=== PATIENT | male | born 1965 | race Asian ===

== ENCOUNTER 2018-06-12 17:33 | Inpatient (IN) | payer OTHER ==
[~2018-06-12] VITALS: Ht 167.6 cm; Wt 69.5 kg
[2018-06-12 17:51] VITALS: Ht 167.6 cm; Wt 69.5 kg
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
--- NOTE | 2018-06-12 20:14 | NUR ---
BROTHER AT BEDSIDE
[2018-06-12 20:44] LABS: BASOPHIL % 0.3 % (0-2)
[2018-06-12 20:47] LABS: PLATELET COUNT 477 x10^3mcL (130-400); RED CELL DISTRIBUTION WIDTH 15.4 % (11.5-14.5)
[2018-06-12 20:56] LABS: CALCIUM 8.3 mg/dL (8.5-10.1); CARBON DIOXIDE 24.8 mmol/L (21-32); CHLORIDE SERUM 102 mmol/L (98-107); CREATININE SERUM 0.9 mg/dL (0.7-1.3); GFR1 > 60 mL/min; GLUCOSE SERUM 131 mg/dL (74-106); POTASSIUM SERUM 3.7 mmol/L (3.5-5.1); SODIUM SERUM 138 mmol/L (136-145)
[2018-06-12 21:00] LABS: ALKALINE PHOSPHATASE 260 U/L (46-116); ALT/SGPT 311 U/L (16-63); AST/SGOT 65 U/L (15-37); BILIRUBIN TOTAL 0.5 mg/dL (0.20-1.00); TOTAL PROTEIN, SERUM 7.1 g/dL (6.4-8.2)
[2018-06-12 21:01] LABS: ALBUMIN 3.1 g/dL (3.4-5.0)
--- NOTE | 2018-06-12 21:43 | NUR ---
PT IN POSTION OF COMFORT RESPS E/U WILL CONTINUE TO MONITOR
--- NOTE | 2018-06-12 22:43 | NUR ---
PT IN POSITION OF COMFORT RESPS E/U LIGHTS OFF PER PT REQUEST WITH DOOR OPEN IN VIEW OF NURSE STATION CALL LIGHT WITHIN REACH WILL CONTINUE TO MONITOR
--- NOTE | 2018-06-12 23:50 | NUR ---
PT IN POSITION OF COMFORT RESPS E/U
--- NOTE | 2018-06-13 00:15 | NUR ---
PT ASLEEP BUT AROUSABLE RESPS E/U CALL LIGHT WIHTIN REACH
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
[2018-06-13 01:42] LABS: CHOLESTEROL/HDL RATIO 5.5
[2018-06-13 02:48] LABS: microscopic required? NO
[2018-06-13 03:05] VITALS: BP 123/73
[2018-06-13 03:25] LABS: AMPHETAMINE QUAL UR NONE DETECTED (See below)
[2018-06-13 03:45] LABS: UA SPECIFIC GRAVITY 1.015 (1.005-1.035)
[2018-06-13 03:46] LABS: urine erythrocyte NEGATIVE (NEGATIVE)
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
[2018-06-13 05:29] VITALS: BP 97/65
--- NOTE | 2018-06-13 07:35 | NUR ---
ENDORSED ALL CARE TO DAYSHIFT NURSE, NO ACUTE DISTRESS NOTED. ALL QUESTIONS AND CONCERNS ADDRESSED, CALL LIGHT WITHIN REACH, BED IN LOWEST POSITION.
--- NOTE | 2018-06-13 07:50 | NUR ---
RECIEVED PT COMFORTABLY RESTING IN BED. PT STABLE WITH NO C/O PAIN AND NO RESPIRATORY DISTRESS NOTED. TELE MONITOR #[id number] CONNECTED TO PATIENT. DENIES CHEST PAIN AT THIS TIME. IV INTACT AND PATENT IN RAC. NS RUNNING AT 100ML/HR. SAFETY PRECATIONS IN PLACE. CALL LIGHT WITHIN REACH. WILL ASSESS, DOCUMENT, AND CONTINUE TO MONITOR.
[2018-06-13 07:52] LABS: CARBON DIOXIDE 24.3 mmol/L (21-32); CHLORIDE SERUM 104 mmol/L (98-107); CREATININE SERUM 0.8 mg/dL (0.7-1.3); GFR1 > 60 mL/min; GLUCOSE SERUM 118 mg/dL (74-106); POTASSIUM SERUM 3.7 mmol/L (3.5-5.1); SODIUM SERUM 138 mmol/L (136-145)
[2018-06-13 08:04] LABS: BASOPHIL % 0.8 % (0-2)
[2018-06-13 08:09] LABS: PLATELET COUNT 480 x10^3mcL (130-400); RED CELL DISTRIBUTION WIDTH 15.1 % (11.5-14.5)
--- NOTE | 2018-06-13 09:00 | NUR ---
PT STABLE WITH NO C/O PAIN OR DISTRESS AT THIS TIME. TOLERATING ALL CARES WELL. WILL CONTINUE TO MONITOR.
[2018-06-13 10:19] VITALS: BP 103/69
--- NOTE | 2018-06-13 11:00 | NUR ---
PT IS RESTING COMFORTABLY IN BED. NO C/O PAIN OR RESP DISTRESS NOTED AT THIS TIME. TOLERATING ALL CARES. WILL CONTINUE TO MONITOR.
[2018-06-13 12:38] VITALS: BP 106/62
--- NOTE | 2018-06-13 13:00 | NUR ---
PT RESTING COMFORTABLY WITH NO C/O PAIN OR DISTRESS. WILL CONTINUE TO MONITOR
--- NOTE | 2018-06-13 15:00 | NUR ---
PT RESTING COMFORTABLY IN BED. REPORTS NO PAIN. ALL CARES ATTENDED TO. WILL CONTINUE TO MONITOR.
[2018-06-13 17:52] VITALS: BP 133/69
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
--- NOTE | 2018-06-13 19:26 | NUR ---
PT RESTING COMFORTABLY IN BED WITH FAMILY AT BEDSIDE. VS WNL. NO PAIN AND NO DISTRESS NOTED. TOLERATED ALL CARES WELL. IV INTACT AND PATENT WITH NO REDNESS. SURGEON IN TO SEE PT TO DISCUSS POC. PT VERBALIZES UNDERSTANDING. ALL QUESTIONS AND CONCERNS ADDRESSED. TELLE #23 CONNECTED TO PT. REPORTED AND ENDORSED FURTHER CARE TO LITHOGRAPH OPERATOR.
[2018-06-13 20:57] VITALS: BP 97/58
--- NOTE | 2018-06-13 22:30 | NUR ---
UPON ASSESSMENT OF PT, PT REPORTS PAIN UNDER CONTROL AT THIS TIME, DSG'S REMAIN CDI, IV SITE REMAINS PATENT TO RAC, NS @ 100ML/HR, NO REDNESS, SWELLING OR PAIN NOTED. CALL LIGHT WITH REACH, BED IN LOWEST POSITION, WILL CONTINUE TO MONITOR.
--- NOTE | 2018-06-14 05:00 | NUR ---
PT RESTED IN INTERVALS DURING SHIFT, NO ACUTE CHANGES OCCURRING OVERNIGHT. PT DENIES PAIN DURING SHIFT, IV SITE REMAINS PATENT TO RAC, NS @ 100ML/HR. PT TOLERATING ANTIBIOTICS WELL. PT SEEN SURGEON YESTERDAY AND IS COOPERATIVE WITH CARE AT THIS TIME. ALL COMFORT AND SAFETY MEASURES PROVIDED FOR, CALL LIGHT WITHIN REACH, BED IN LOWEST POSITION, WILL CONTINUE TO MONITOR.
[2018-06-14 05:08] VITALS: BP 104/66
[2018-06-14 06:34] LABS: BASOPHIL % 0.6 % (0-2)
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
[2018-06-14 07:31] LABS: CALCIUM 8.2 mg/dL (8.5-10.1); CARBON DIOXIDE 24.6 mmol/L (21-32); CHLORIDE SERUM 106 mmol/L (98-107); CREATININE SERUM 0.7 mg/dL (0.7-1.3); GFR1 > 60 mL/min; GLUCOSE SERUM 113 mg/dL (74-106); POTASSIUM SERUM 4.8 mmol/L (3.5-5.1); SODIUM SERUM 141 mmol/L (136-145)
[2018-06-14 07:42] LABS: PLATELET COUNT 406 x10^3mcL (130-400); RED CELL DISTRIBUTION WIDTH 14.9 % (11.5-14.5)
--- NOTE | 2018-06-14 07:46 | NUR ---
ENDORSED ALL CARE TO DAYSHIFT NURSE, NO ACUTE DISTRESS NOTED. ALL QUESTIONS AND CONCERNS ADDRESSED. ALL COMFORT AND SAFETY MEASURES PROVIDED FOR, CALL LIGHT WITHIN REACH, BED IN LOWEST POSITION.
--- NOTE | 2018-06-14 08:03 | NUR ---
TYLENOL 65OMG PO GIVEN FOR SHARP R THIGH PAIN 05/26. FLUIDS ENCOURAGED. CALL LIGHT WITHIN REACH.
--- NOTE | 2018-06-14 09:29 | NUR ---
DUE MEDS GIVEN BY STUDENT NURSE WITH PROFESSOR. DENIES PAIN OR DISCOMFORT. FLUIDS ENCOURAGED. PT TAUGHT TO MOVE AND REPOSITION FREQUENTLY WHEN IN BED. PT VERBALIZED UNDERSTANDING.
[2018-06-14 09:35] VITALS: BP 100/65
--- NOTE | 2018-06-14 11:06 | NUR ---
DR. GALEANO TX PT WOUNDS. R UPPER THIGH ANTERIOR WOUND DRESSING REMOVED. ONE RUNNING SUTURE REMOVED. AREA CLEANSED WITH N/S PATTED DRY AND COVERED WITH NON ADHERENT 4X4 AND NONADHERENT ISLAND DRESSING. L UPPER THIGH POSTERIOR WOUND DRESSING REMOVED, 4 SUTURES REMOVED. AREA CLEANSED WITH N/S, PATTED DRY AND COVERED WITH NON ADHERENT 4X4 AND NON ADHERENT ISLAND DRESSING. PICTURES OF BOTH ANTERIOR AND POSTERIOR WOUNDS TAKEN AND IN CHART. PT TOLERATED PROCEDURE WELL.
[2018-06-14 12:45] VITALS: BP 122/72
--- NOTE | 2018-06-14 13:14 | NUR ---
SPOKE TO RAMILA REGARD PATIENT WOUND AND WAS AWARE WOUND VAC ORDER, PER RAMILA WILL EVALUATE PATIENT'S WOUND IF CANDIDATE FOR WOUND VAC.
[2018-06-14 15:45] VITALS: BP 101/63
--- NOTE | 2018-06-14 17:10 | NUR ---
RAMILA WOUND CARE CONSULT CHANGED PT'S DRESSING. DUE MEDS GIVEN. PT DENIES PAIN OR DISCOMFORT. NO DISTRESS NOTED. CALL LIGHT WITHIN REACH.
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
--- NOTE | 2018-06-14 18:17 | NUR ---
PT IS AAOX4. RESP EVEN AND UNLABORED. NO DISTRESS NOTED. DENIES PAIN. IVF RUNNING TO RAC, PATENT. SITE WNL. PT HAS R ANTERIOR AND POSTERIOR THIGH WOUNDS, COVERED WITH CDI DRESSING, NO DRAINAGE NOTED AT THIS TIME. BED IN LOW POSITION. CALL LIGHT WITHIN REACH. WILL ENDORSE ALL CARE TO NOC RN.
[2018-06-14 20:00] VITALS: BP 100/61
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
--- NOTE | 2018-06-14 21:33 | NUR ---
SCHEDULED MEDS ADMINISTERED, PATIENT COMPLAINED OF PAIN TO RT THIGH MEDICATED PRN AND MADE COMFORTABLE IN BED. PATIENT INFORMED ABOUT PURPOSE AND ACTION OF EACH MEDS PRIOR. TOOK PILS WELL.
--- NOTE | 2018-06-14 22:24 | NUR ---
CHECKED EFFECTIVENESS OF PAIN MEDS GIVEN,PATIENT STATED PAIN IS SLOWLY SUBSIDING.
--- NOTE | 2018-06-15 00:52 | NUR ---
ROUNDS MADE PATIENT REMAINED AWAKE, AFTER AMBIEN GIVEN, PATIENT REQUESTING FOR ANOTHER DOSE INFORMED THAT WE WILL INFORM MD. NO OTHER CONCERNS VERBALIZED.
--- NOTE | 2018-06-15 01:02 | NUR ---
SHERLYN GIVEN FOR SLEEP. WILL CHECK EFFECTIVENESS.
--- NOTE | 2018-06-15 03:00 | NUR ---
REMAINED ASLEEP NO DISTRESS. WILL CONTINUE TO MONITOR.
[2018-06-15 06:04] VITALS: BP 94/64
[2018-06-15 06:25] LABS: BASOPHIL % 1.3 % (0-2)
[2018-06-15 06:39] LABS: PLATELET COUNT 480 x10^3mcL (130-400); RED CELL DISTRIBUTION WIDTH 15.1 % (11.5-14.5)
--- NOTE | 2018-06-15 06:47 | NUR ---
PATIENT STATED SLEPT OFF AND ON DURING THE SHIFT, IV SITE NO SIGN OF INFILTRATION. SEEN AMBULATING IN HALLWAY THIS AM WITH STEADY GAIT. PAIN TO RT THIGH WOUND RATED AT 3/10 BEARABLE. WILL ENDORSE CONTINUITY OF CARE TO INCOMING NURSE.
[2018-06-15 06:59] LABS: ALKALINE PHOSPHATASE 162 U/L (46-116); ALT/SGPT 150 U/L (16-63); AST/SGOT 25 U/L (15-37); BILIRUBIN TOTAL 0.3 mg/dL (0.20-1.00); CALCIUM 8.3 mg/dL (8.5-10.1); CARBON DIOXIDE 25.8 mmol/L (21-32); CHLORIDE SERUM 105 mmol/L (98-107); CREATININE SERUM 0.8 mg/dL (0.7-1.3); GFR1 > 60 mL/min; GLUCOSE SERUM 118 mg/dL (74-106); POTASSIUM SERUM 3.7 mmol/L (3.5-5.1); SODIUM SERUM 141 mmol/L (136-145); TOTAL PROTEIN, SERUM 6.3 g/dL (6.4-8.2)
[2018-06-15 07:01] LABS: ALBUMIN 2.7 g/dL (3.4-5.0)
--- NOTE | 2018-06-15 07:36 | NUR ---
BEDSIDE HANDSOFF AND INTRODUCTION PERFORMED WITH INCOMING NURSE TANIA-RN.
--- NOTE | 2018-06-15 07:56 | NUR ---
RECEIVED PATIENT FROM [facility]. PATIENT IN BED RESTING, ON PHONE W NO COMPLAINTS OF PAIN OR DISCOMFORT. R THIGH DRESSING INTACT, CDI. WILL CONTINUE TO MONITOR WOUND & AWAIT FAMILY FOR WOUND CARE NURSE TEACHING. CALL LIGHT IN REACH.
[2018-06-15 08:53] VITALS: BP 105/63
[2018-06-15] MEDS ORDERED: CLINDAMYCIN HC300 MG PO (10:26)
--- NOTE | 2018-06-15 10:30 | NUR ---
WOUND CARE NURSE RAMILA IN TO SEE PATIENT. PATIENT & FAMILY MEMBER TAUGHT TO DO WOUND CARE. ALL QUESTIONS ANSWERED. SPOKE W CUTTER DOWN GONZALEZ ABOUT PATIENTS CURRENT ADDRESS, GONZALEZ STATES SHE WILL SPEAK WITH PATIENT BEFORE DISCHARGE. CALL LIGHT IN REACH.
[2018-06-15 11:24] VITALS: BP 105/63
--- NOTE | 2018-06-15 15:24 | NUR ---
PATIENT DISCHARGE INSTRUCTIONS GIVEN TO PATIENT, PRESCRIPTIONS GIVEN. ALL QUESTIONS ANSWERED. IV CATHETER REMOVED & INTACT. PATIENT W BELONGINGS & WOUND CARE SUPPLIES GIVEN. PATIENT ESCORTED TO DISCHARGE OFFICE W ARYAN COLON.
== END 2018-06-15 15:40 | disposition home health service (06) | DRG 721 ==
LOC: ED 17:33 → DU 06-13 00:39 → MU 06-13 00:39 → DU 06-13 01:37 → MU 06-14 15:43
PROVIDERS: Emergency Medicine; ADMIT General Practice
DX: T81.41XA Infection following a procedure, superficial incisional surgical site, initial encounter (principal); N17.0 Acute kidney failure with tubular necrosis; A41.9 Sepsis, unspecified organism; L02.415 Cutaneous abscess of right lower limb; L03.115 Cellulitis of right lower limb; E44.0 Moderate protein-calorie malnutrition; D64.9 Anemia, unspecified; E78.5 Hyperlipidemia, unspecified; Z68.25 Body mass index [BMI] 25.0-25.9, adult
CPT/HCPCS: 83880; 90658; J2543; J3370; J7030; J7040; J7050; Q9967